=== PATIENT | female | born 1950 | race Caucasian/White ===

== ENCOUNTER → 2017-06-20 | Outpatient (CLI) | payer OTHER | END | disposition home or self-care (01) | DX: R26.2 Difficulty in walking, not elsewhere classified (principal); M25.551 Pain in right hip; M25.651 Stiffness of right hip, not elsewhere classified; M16.11 Unilateral primary osteoarthritis, right hip; Z74.1 Need for assistance with personal care | CPT/HCPCS: 97150 GO; 97161 GP; 97165 GO; 97530 GP; G8978 GP; G8979 GP; G8980 GP; G8987 GO; G8988 GO; G8989 GO ==

== ENCOUNTER 2017-08-06 22:07 | Inpatient (IN) | payer OTHER ==
[~2017-08-06] VITALS: Ht 154.9 cm; Wt 66.0 kg
[~2017-08-06 22:07] MED LIST: IRON240 MG PO
[2017-08-07 07:50] VITALS: BP 140/69
[2017-08-07 13:28] LABS: HEMATOCRIT 39.6 % (36.0-46.0); HEMOGLOBIN 12.6 G/DL (11.9-15.5); MCV 89.4 FL (83-99)
[2017-08-07 15:04] VITALS: BP 148/62
[2017-08-07 17:51] VITALS: BP 121/58
[2017-08-07 20:05] VITALS: BP 136/72
[2017-08-08 00:21] VITALS: BP 140/63
[2017-08-08 04:12] VITALS: BP 111/53
[2017-08-08 04:53] LABS: HEMATOCRIT 34.5 % (36.0-46.0); HEMOGLOBIN 11.5 G/DL (11.9-15.5); MCV 87.3 FL (83-99)
[2017-08-08 07:32] VITALS: BP 92/55
[2017-08-08 10:02] LABS: CHLORIDE 107 MEQ/L (99-109); CREATININE 0.8 MG/DL (0.6-1.3); GFR ESTIMATE (CALCULATED) > 59 mL/min/; GLUCOSE 140 mg/dL (70-99); POTASSIUM 3.9 MEQ/L (3.7-5.4); SODIUM 136 MEQ/L (136-147); UREA NITROGEN (BUN) 14 mg/dL (9-23)
[2017-08-08 11:47] VITALS: BP 104/52
[2017-08-08 15:41] VITALS: BP 109/59
[2017-08-08] MEDS ORDERED: ELIQUIS2.5 MG PO (16:42)
[2017-08-08] MEDS ORDERED: ENDOCET 5-3251 EACH PO (16:42)
[2017-08-08 20:17] VITALS: BP 118/58
[2017-08-09 00:14] VITALS: BP 134/62
[2017-08-09 04:16] VITALS: BP 120/58
[2017-08-09 08:00] VITALS: BP 138/60
[2017-08-09 12:00] VITALS: BP 115/58
== END 2017-08-09 13:54 | disposition home health service (06) | DRG 470 ==
LOC: ENRESERV 22:07 → 2SOUTH 08-07 07:03 → 3WEST 08-07 14:59
PROVIDERS: Orthopaedic Surgery
PROC: 0SR902Z Replacement of Right Hip Joint with Metal on Polyethylene Synthetic Substitute, Open Approach (ICD-10-PCS; principal; 2017-08-07)
DX: M16.11 Unilateral primary osteoarthritis, right hip (principal); F17.200 Nicotine dependence, unspecified, uncomplicated
CPT/HCPCS: 80048; 85014; 85018; 90686; J0690; J1885; J2250; J3010; J7050; J7120